=== PATIENT | female | born 1950 | race Caucasian/White ===

== ENCOUNTER 2016-12-26 19:37 | Emergency (ER) | payer MEDICARE ==
[2016-12-26 20:16] VITALS: BP 149/86
--- NOTE | 2016-12-26 20:36 | UC ---
Dizzy HPI HPI Summary: dizziness x 1 day has been unsteady on her feet. no weakness, no chest pain or sob, no sinus pain , no ear pain - History Of Current Complaint Chief Complaint: UCDizziness Stated Complaint: DIZZINESS Time Seen by Provider: 12/26/16 20:19 Hx Obtained From: Patient Onset/Duration: Gradual Onset, Lasting Days - 1, Still Present Timing: Constant Severity Initially: Moderate Severity Currently: Moderate Character: Dizzy Aggravating Factor(s): Supine To Erect, Change In Head Position Alleviating Factor(s): Rest Associated Signs And Symptoms: Positive: Negative. Negative: Nausea, Vomiting, Diaphoresis, Tinnitus, Chest Pain, SOB, Palpitations, Unsteady Gait, Visual Changes, Decreased Oral Intake, Change In Medication, Change In Diet, OTC Medications - Allergies/Home Medications Home Medications: Home Medications Aspirin EC Low Dose* [Ecotrin EC Low Dose 81 MG*] 81 mg PO DAILY 12/26/16 [ History Confirmed 12/26/16] Cholecalciferol TAB* [Vitamin D TAB*] 2,000 units PO DAILY 12/26/16 [History Confirmed 12/26/16] Citalopram TAB* [Celexa TAB*] 10 mg PO DAILY 12/26/16 [History Confirmed ] Dexlansoprazole (NF) [Dexilant (NF)] 60 mg PO DAILY 12/26/16 [History Confirmed 12/26/16] Diclofenac Sodium EC TAB* [Voltaren EC TAB*] 25 mg PO TID PRN 12/26/16 [History Confirmed 12/26/16] Docusate CAP* [Colace Cap*] 200 mg PO BEDTIME 12/26/16 [History Confirmed ] Gabapentin CAP(*) [Neurontin 100 mg CAP(*)] 200 mg PO TID 12/26/16 [History Confirmed 12/26/16] Hydrochlorothiazide TAB* [Hydrodiuril TAB*] 12.5 mg PO DAILY 12/26/16 [History Confirmed 12/26/16] [place]-3 Fatty Acids [Fish Oil] 1,000 mg PO DAILY 12/26/16 [History Confirmed 08/02] Oxybutynin XL TAB* [Ditropan Xl TAB*] 5 mg PO DAILY 12/26/16 [History Confirmed 12/26/16] Phendimetrazine Tartrate 1 dose PO BID 12/26/16 [History Confirmed 12/26/16] Ranitidine HCl [Zantac] 150 mg PO BID 12/26/16 [History Confirmed 12/26/16] Senna TAB* [Senokot TAB*] 1 tab PO BEDTIME 12/26/16 [History Confirmed 12/26/16] Tizanidine HCl 2 mg PO TID 12/26/16 [History Confirmed 12/26/16] busPIRone TAB* [Buspar TAB*] 5 mg PO BEDTIME 12/26/16 [History Confirmed ] traMADol TAB* [Ultram*] 50 mg PO Q6HR PRN 12/26/16 [History Confirmed 12/26/16] traZODone TAB* [Desyrel TAB*] 50 mg PO BEDTIME 12/26/16 [History Confirmed 12/26] PMH/Surg Hx/FS Hx/Imm Hx Endocrine History Of: Denies: Diabetes, Thyroid Disease Cardiovascular History Of: Reports: Hypertension Denies: Cardiac Disorders Respiratory History Of: Denies: COPD, Asthma GI/ History Of: Denies: Ulcer - Surgical History Surgical History: Yes Surgery Procedure, Year, and Place: neck laminectomy. low back laminectomy. left knee arthroscpoy and removal of bone fragment. left total hip. ERCP - Family History Known Family History: Negative: Diabetes - Social History Alcohol Use: Rare Substance Use Type: None Smoking Status (MU): Never Smoked Tobacco Review of Systems Constitutional: Negative Skin: Negative Eyes: Negative ENT: Negative Respiratory: Negative Psychological: Negative All Other Systems Reviewed And Are Negative: Yes Physical Exam Triage Information Reviewed: Yes Appearance: Well-Appearing, No Pain Distress, Well-Nourished Vital Signs: Initial Vital Signs Temp 99.6 F 12/26/16 19:41 Pulse 89 12/26/16 19:41 Resp 16 12/26/16 19:41 BP 149/86 12/26/16 19:41 Pulse Ox 98 12/26/16 19:41 Vital Signs Reviewed: Yes Eyes: Positive: Conjunctiva Clear ENT: Positive: Normal ENT inspection, Hearing grossly normal, Pharynx normal, Pharyngeal erythema, TMs normal Neck exam: Normal Neck: Positive: Supple, Nontender, No Lymphadenopathy Respiratory: Positive: Chest non-tender, Lungs clear, Normal breath sounds Cardiovascular: Positive: RRR, No Murmur, Pulses Normal Abdominal Exam: Normal Abdomen Description: Positive: Nontender Bowel Sounds: Positive: Present Neurological: Positive: Alert, Muscle Tone Normal UC Physical Exam Vital Signs On Initial Exam: Initial Vitals Temp Pulse Resp BP Pulse Ox 99.6 F 89 16 149/86 98 12/26/16 19:41 12/26/16 19:41 12/26/16 19:41 12/26/16 19:41 12/26/16 19:41 - Neurological Exam Neurological: Sensory/Motor Intact, Alert, Oriented to Person Place, Time, CN Intact II-III, Reflexes Intact, Speech Normal Dizzy Course/Dx - Differential Dx/Diagnosis Provider Diagnoses: vertigo Discharge - Discharge Plan Condition: Stable Disposition: HOME Prescriptions: Meclizine TAB* [Antivert 12.5 TAB*] 25 mg PO TID PRN #21 tab PRN Reason: Dizziness Patient Education Materials: Vertigo (ED) Referrals: Margaret Vuong NP [Primary Care Provider] - 3 Days
[2016-12-26] MEDS ORDERED: Meclizine TAB* 12.5 MG PO ONE ×2 (20:47→20:56)
== END 2016-12-26 21:05 | disposition home or self-care (01) ==
LOC: UCCORT 19:37
DX: R42 Dizziness and giddiness (principal); I10 Essential (primary) hypertension
CPT/HCPCS: 99212; A9270-GY; G0463

== ENCOUNTER 2017-10-10 19:50 | Emergency (ER) | payer MEDICARE, OTHER ==
[2017-10-10 20:11] VITALS: BP 142/81
[2017-10-10] MEDS ORDERED: Albuterol 2.5 MG/3 ML NEB.SOL* (0.083%) INH ONE (21:00)
--- NOTE | 2017-10-10 21:05 | UC ---
General HPI - HPI Summary HPI Summary: pt is c/o 5 day hx runny nose, cough, tight lungs and chest heavy with congestion. admits to occasional wheezing and sob but denies asthma and copd hx. denies cp. does report "hot flashes". - History of Current Complaint Chief Complaint: UCRespiratory Stated Complaint: COUGH,RUNNY NOSE,CHEST HEAVINESS Time Seen by Provider: 10/10/17 20:49 Hx Obtained From: Patient Onset/Duration: Gradual Onset Timing: Constant Onset Severity: Mild Pain Intensity: 0 Aggravating: nothing Alleviating: nothing Associated Signs & Symptoms: Positive: Cough, Fever, SOB. Negative: Chest Pain , Diaphoresis, Nausea, Palpitations - Allergy/Home Medications Allergies/Adverse Reactions: Allergies Allergy/AdvReac Type Severity Reaction Status Date / Time MS Penicillins [Penicillins] Allergy Rash Verified 10/10/17 20:10 MS Sulfa Antibiotics Allergy Palpitation Verified 10/10/17 20:10 [Sulfa Antibiotics] s Home Medications: Home Medications Biotin 5 mg PO DAILY 10/10/17 [History Confirmed 10/10/17] Garlic 1,000 mg PO DAILY 10/10/17 [History Confirmed 10/10/17] PMH/Surg Hx/FS Hx/Imm Hx Other Cardiovascular History: chronic back apin GI/ History: Gastroesophageal Reflux Other Psychological History: sleep disturbance - Surgical History Surgical History: Yes Surgery Procedure, Year, and Place: neck laminectomy. low back laminectomy. left knee arthroscpoy and removal of bone fragment. left total hip. ERCP - Family History Known Family History: Negative: Diabetes - Social History Alcohol Use: Rare Substance Use Type: None Smoking Status (MU): Never Smoked Tobacco - Immunization History Vaccination Up to Date: Yes Review of Systems Constitutional: Negative Skin: Negative Eyes: Negative ENT: Negative Respiratory: Shortness Of Breath, Cough Cardiovascular: Negative Gastrointestinal: Negative Genitourinary: Negative Motor: Negative Neurovascular: Negative Musculoskeletal: Negative Neurological: Negative Psychological: Negative Is Patient Immunocompromised?: No All Other Systems Reviewed And Are Negative: Yes Physical Exam Triage Information Reviewed: Yes Appearance: Well-Appearing Vital Signs: Initial Vital Signs Temp 99.2 F 10/10/17 20:07 Pulse 87 10/10/17 20:07 Resp 16 10/10/17 20:07 BP 142/81 10/10/17 20:07 Pulse Ox 97 10/10/17 20:07 Vital Signs Reviewed: Yes Eyes: Positive: Conjunctiva Clear ENT: Positive: Pharynx normal, TMs normal. Negative: Nasal congestion, Nasal drainage Neck: Positive: Supple, Nontender, No Lymphadenopathy, Other: - no jvd Respiratory: Positive: Lungs clear, Normal breath sounds, No respiratory distress, Decreased breath sounds Cardiovascular: Positive: RRR, No Murmur, Pulses Normal, Other: - no pedal edema Abdomen Description: Positive: Nontender, No Organomegaly, Soft Bowel Sounds: Positive: Present Musculoskeletal: Positive: No Edema Neurological: Positive: Alert Skin Exam: Normal Re-Evaluation - Re-Evaluation Second Eval Re-Evaluation Time: 21:23 - aeration improved and pt notes less cough and easier to breathe. Course/Dx - Course Course Of Treatment: do not feel cardiac or pneumonia. will tx with albuterol mdi for bronchitis. no indication for antibiotics. BP mildly elevated. pt notes takes fluid pill. will have bp rechecked on follow up. - Differential Dx - Multi-Symptom Provider Diagnoses: Bronchitis Discharge - Discharge Plan Condition: Stable Disposition: HOME Prescriptions: Albuterol HFA INHALER* [Ventolin HFA Inhaler*] 2 puff INH Q6H 7 Days #1 mdi Patient Education Materials: Acute Bronchitis (ED) Referrals: Marine Mcgrath MD [Primary Care Provider] - 5 Days
== END 2017-10-10 21:29 | disposition home or self-care (01) ==
LOC: UCCORT 19:50
DX: J40 Bronchitis, not specified as acute or chronic (principal)
CPT/HCPCS: 99212; G0463

== ENCOUNTER 2018-08-09 18:30 | Emergency (ER) | payer OTHER ==
[2018-08-09 18:51] VITALS: BP 122/85
--- NOTE | 2018-08-09 19:18 | UC ---
Back Pain HPI - HPI Summary HPI Summary: PATIENT PRESENTS WITH PAIN IN THE RIGHT LOW BACK THAT STARTED LAST NIGHT. UNCLEAR WHAT TRIGGERED IT. SHE HAS OCCASIONAL NUMBNESS/PAIN GOING DOWN THE RIGHT LEG. THEN THIS EVENING SHE WAS LEAVING THE HOUSE SHE SLIPPED ON THE STAIRS AND LANDED DIRECTLY ON HER BUTTOCKS EXACERBATING HER PAIN. NO SADDLE ANESTHESIA. NO LOSS OF BOWEL OR BLADDER CONTROL. HAS A HISTORY OF CHRONIC BACK PAIN AND HAS HAD MULTIPLE SPINAL SURGERIES. TAKES TRAMADOL, TIZANIDINE, GABAPENTIN AND DICLOFENAC REGULARLY. - History of Current Complaint Chief Complaint: UCBackPain Stated Complaint: BACK PAIN AFTER FALL Time Seen by Provider: 08/09/18 18:44 Hx Obtained From: Patient Onset/Duration: Sudden Onset, Lasting Days - 1 DAY, Still Present Timing: Constant Severity Initially: Moderate Severity Currently: Moderate Pain Intensity: 8 Pain Scale Used: 0-10 Numeric Back Pain: Is Discrete @ - RIGHT LOW BACK Character: Sharp Aggravating Factor(s): Movement Alleviating Factor(s): Rest Associated Signs And Symptoms: Negative: Swelling, Weakness - Allergies/Home Medications Allergies/Adverse Reactions: Allergies Allergy/AdvReac Type Severity Reaction Status Date / Time Penicillins Allergy Rash Verified 07/12/18 16:49 Sulfa (Sulfonamide Allergy Palpitation Verified 07/12/18 16:49 Antibiotics) s Home Medications: Home Medications Amitriptyline HCl 25 mg PO BEDTIME 08/09/18 [History Confirmed 08/09/18] Kati 500 mg PO DAILY 08/09/18 [History Confirmed 08/09/18] PMH/Surg Hx/FS Hx/Imm Hx - Additional Past Medical History Additional PMH: CHRONIC BACK PAIN Cardiovascular History: Hypertension - Surgical History Surgical History: Yes Surgery Procedure, Year, and Place: neck laminectomy. low back laminectomy. left knee arthroscoPy and removal of bone fragment. left total hip. ERCP - Family History Known Family History: Negative: Diabetes - Social History Alcohol Use: Rare Substance Use Type: None Smoking Status (MU): Former Smoker When Did the Patient Quit Smoking/Using Tobacco: 2004 - Immunization History Vaccination Up to Date: Yes Review of Systems All Other Systems Reviewed And Are Negative: Yes Constitutional: Positive: Negative Respiratory: Positive: Negative Cardiovascular: Positive: Negative Gastrointestinal: Positive: Negative Musculoskeletal: Positive: Myalgia Physical Exam Triage Information Reviewed: Yes Appearance: Well-Appearing, Well-Nourished, Pain Distress - MILD Vital Signs: Initial Vital Signs Temp 97.8 F 08/09/18 18:42 Pulse 106 08/09/18 18:42 Resp 14 08/09/18 18:42 BP 122/85 08/09/18 18:42 Pulse Ox 97 08/09/18 18:42 Vital Signs Reviewed: Yes Eyes: Positive: Conjunctiva Clear ENT: Positive: Hearing grossly normal Neck: Positive: Supple Respiratory: Positive: No respiratory distress, No accessory muscle use Cardiovascular: Positive: Pulses Normal Abdomen Description: Positive: Soft Musculoskeletal: Positive: ROM Intact, No Edema, Other: - NO TENDERNESS OVER SPINE OR PARASPINOUS MUSCLES Neurological: Positive: Alert Psychological: Positive: Age Appropriate Behavior Skin: Negative: Rashes Back Pain Course/Dx - Course Course Of Treatment: EXAM TODAY IS NONACUTE. OFFERED PATIENT X-RAYS OF HER LOW BACK HOWEVER SHE DECLINES AT PRESENT. SHE WILL CONTINUE TO TAKE HER PAIN MEDICATION PRESCRIBED AND FOLLOW-UP WITH HER PCP IF SHE DOES NOT IMPROVE. ADVISED TO GO TO THE ED WITHOUT FAIL IF SYMPTOMS WORSEN. - Differential Dx/Diagnosis Provider Diagnosis: Acute exacerbation of chronic low back pain Discharge - Sign-Out/Discharge Documenting (check all that apply): Patient Departure All imaging exams completed and their final reports reviewed: No Studies - Discharge Plan Condition: Stable Disposition: HOME Patient Education Materials: Low Back Strain (ED) Referrals: Marine Mcgrath MD [Primary Care Provider] - Additional Instructions: YOUR SYMPTOMS SHOULD IMPROVE SIGNIFICANTLY OVER THE NEXT 1-2 WEEKS. IF YOU DO NOT IMPROVE EXPECTED FOLLOW-UP WITH YOUR PCP OR ORTHO. YOU MAY BENEFIT FROM IMAGING AT THAT TIME. REST. CONTINUE TO TAKE YOUR PAIN MEDS PRESCRIBED. BE SURE TO GO THROUGH SLOW RANGE OF MOTION AND STRETCHING EXERCISES DAILY YOU ARE ABLE TO PREVENT STIFFENING UP AND MAKING THE DISCOMFORT WORSE. GO TO THE ED WITHOUT FAIL IF YOU DEVELOP WORSENING NUMBNESS/TINGLING IN YOUR LEGS, NUMBNESS IN THE GENITAL REGION, LOSS OF BOWEL/BLADDER CONTROL, INTOLERABLE PAIN OR ANY OTHER CONCERNING SYMPTOMS. - Billing Disposition and Condition Condition: STABLE Disposition: Home
== END 2018-08-09 19:22 | disposition home or self-care (01) ==
LOC: UCCORT 18:30
DX: G89.29 Other chronic pain (principal); M54.5 Low back pain; Z88.0 Allergy status to penicillin; Z88.2 Allergy status to sulfonamides; I10 Essential (primary) hypertension; Z87.891 Personal history of nicotine dependence
CPT/HCPCS: 99211; G0463

== ENCOUNTER 2018-10-19 16:33 | Emergency (ER) | payer MEDICARE ==
[2018-10-19 16:56] VITALS: BP 144/80
--- NOTE | 2018-10-19 17:17 | UC ---
Complaint Female HPI - HPI Summary HPI Summary: 68 yo female with onset of dysuria /urgency and frequency that started last PM noted scant blood in urine once no f/c vomited once - History Of Current Complaint Chief Complaint: UCGU Stated Complaint: URINARY Time Seen by Provider: 10/19/18 17:07 Hx Obtained From: Patient Onset/Duration: Gradual Onset, Lasting Hours Timing: Intermittent, Lasting Minutes Severity Initially: Moderate Severity Currently: None Pain Intensity: 0 Pain Scale Used: 0-10 Numeric Character: Burning Aggravating Factor(s): Urination Associated Signs And Symptoms: Positive: Back Pain - chronic LBP, Vomiting(# Of Episodes =) - 1. Negative: Fever, Vaginal Bleeding/Discharge, Vaginal Discharge , Nausea, Genital Swelling, Genital Blisters, Retained Foregin Body (Specify) Related Hx: Similar Episode/Dx as: - UTI - Allergies/Home Medications Allergies/Adverse Reactions: Allergies Allergy/AdvReac Type Severity Reaction Status Date / Time Penicillins Allergy Rash Verified 10/19/18 16:53 Sulfa (Sulfonamide Allergy Palpitation Verified 10/19/18 16:53 Antibiotics) s PMH/Surg Hx/FS Hx/Imm Hx Previously Healthy: Yes - DJD Cardiovascular History: Hypertension - Surgical History Surgical History: Yes Surgery Procedure, Year, and Place: neck laminectomy. low back laminectomy. left knee arthroscoPy and removal of bone fragment. left total hip. ERCP - Family History Known Family History: Positive: Hypertension Negative: Diabetes - Social History Alcohol Use: None Substance Use Type: None Smoking Status (MU): Former Smoker When Did the Patient Quit Smoking/Using Tobacco: 2004 - Immunization History Vaccination Up to Date: Yes Review of Systems All Other Systems Reviewed And Are Negative: Yes Constitutional: Positive: Negative Skin: Positive: Negative Eyes: Positive: Negative ENT: Positive: Negative Respiratory: Positive: Negative Cardiovascular: Positive: Negative Gastrointestinal: Positive: Negative Genitourinary: Positive: Dysuria, Hematuria, Frequency, Urgency Motor: Positive: Negative Neurovascular: Positive: Negative Musculoskeletal: Positive: Arthralgia Neurological: Positive: Negative Psychological: Positive: Negative Physical Exam Triage Information Reviewed: Yes Appearance: Well-Appearing, No Pain Distress, Well-Nourished Vital Signs: Initial Vital Signs Temp 98.3 F 10/19/18 16:52 Pulse 85 10/19/18 16:52 Resp 16 10/19/18 16:52 BP 144/80 10/19/18 16:52 Pulse Ox 100 10/19/18 16:52 Vital Signs Reviewed: Yes Eyes: Positive: Conjunctiva Clear ENT: Positive: Hearing grossly normal. Negative: Nasal congestion, Nasal drainage, Tonsillar exudate, Trismus, Muffled voice, Hoarse voice Neck: Positive: Supple, Nontender, No Lymphadenopathy Respiratory: Positive: Lungs clear, Normal breath sounds, No respiratory distress, No accessory muscle use Cardiovascular: Positive: RRR, No Murmur Abdomen Description: Positive: Nontender, No Organomegaly. Negative: CVA Tenderness (R), CVA Tenderness (L) Bowel Sounds: Positive: Present Musculoskeletal: Positive: ROM Intact, No Edema Neurological: Positive: Alert Psychological Exam: Normal Skin Exam: Normal Complaint Female Dx - Course Course Of Treatment: UA tr leuks,++RBCs,+nitrite - Differential Dx/Diagnosis Provider Diagnosis: Acute cystitis with hematuria Discharge - Sign-Out/Discharge Documenting (check all that apply): Patient Departure All imaging exams completed and their final reports reviewed: No Studies - Discharge Plan Condition: Stable Disposition: HOME Prescriptions: Cephalexin CAP* [Keflex CAP*] 500 mg PO BID #10 cap Phenazopyridine TAB* [Pyridium TAB*] 100 mg PO TID #6 tab Patient Education Materials: Urinary Tract Infection in Women (ED) Referrals: Marine Mcgrath MD [Primary Care Provider] - 2 Weeks (recheck urine in 2 weeks) Additional Instructions: recheck in 2=3 days if not better - Billing Disposition and Condition Condition: STABLE Disposition: Home
[2018-10-19] MEDS ORDERED: Phenazopyridine TAB* 100 MG PO ONE (17:23)
[2018-10-19] MEDS ORDERED: Cephalexin CAP* 500 MG PO ONE (17:23)
== END 2018-10-19 17:38 | disposition home or self-care (01) ==
LOC: UCCORT 16:33
DX: N30.01 Acute cystitis with hematuria (principal); I10 Essential (primary) hypertension; Z87.891 Personal history of nicotine dependence; Z88.2 Allergy status to sulfonamides; Z88.0 Allergy status to penicillin
CPT/HCPCS: 81003; 87077; 87086; 87186; 99212; A9270-GY; G0463